=== PATIENT | female | born 1930 | race Caucasian/White ===

== ENCOUNTER → 2016-09-10 | Outpatient (CLI) | payer OTHER ==
[~2016-09-10] MED LIST: ACTONEL 35 MG35 M1 PO; ASPIRIN EC325 M1 PO; CALCITONIN SALMON NASAL; CALCIUM + VIT1 EACH PO; CARBIDOPA-LEVO1 EAC2 PO; CARBIDOPA-LEVO1 EAC9 PO; CELEBREX 200 M200 M1 PO; FISH OIL 1,2001 EAC3 PO; GLUCOSAMINE1000 MG PO; PRAVACHOL40 MG PO; SYNTHROID50 MCG PO; ZETIA10 MG PO
== END ==
LOC: RAD 13:35
DX: M41.86 Other forms of scoliosis, lumbar region (principal)

== ENCOUNTER → 2016-09-17 | Outpatient (CLI) | payer OTHER | LOC: MRI 13:45 → EDSTATUS 15:29 | DX: M51.36 Other intervertebral disc degeneration, lumbar region (principal); M48.06 Spinal stenosis, lumbar region ==

== ENCOUNTER → 2016-09-21 | Outpatient (CLI) | payer OTHER ==
[~2016-09-21] VITALS: Ht 160 cm; Wt 63.6 kg
[~2016-09-21] MED LIST changes: +CALCIUM + VITA1 EACH PO; +GABAPENTIN 100100 MG PO; +MELATONIN1 MG PO; +PROLIA60 MG/1 ML SQ
--- NOTE | ~2016-09-21 | HPC ---
[facility] [address] [place] [address] PAIN MANAGEMENT CONSULTATION [facility] Room #: REG VERNELL ArmstrongRenu#: [id number] Admission: 09/21/16 Attend Phys: Joe Zavala DO Discharge: Date of : 31 Report #: [id number] THIS REPORT FOR: //name// CC: Efraín Zavala HISTORY OF PRESENT ILLNESS: The patient is an 86-year-old female seen in consultation at the request of Dr. Juárez for assistance with management of ongoing pain, low back, left buttock and leg. The patient describes constant pulling, aching sensation. She feels pain started about 3 months ago without specific antecedent trauma and overuse. She describes continuous aching, pulling pain. She rates it as 7-10 on a VAS. Seems to be exacerbated bending forward. Some relief when sitting. REVIEW OF SYSTEMS: Complete review of systems attached to chart and gone over with the patient. SOCIAL HISTORY: She is . She does not smoke or drink alcohol to excess. PAST MEDICAL HISTORY: History of coronary artery disease, hypothyroidism and DJD status post bilateral knee surgeries. Did have breast cancer, bilateral having had mastectomies in 2001 and 2002. Has coronary artery stents in 2007 and 2008. MEDICATIONS: Medication list was reconciled includes Prolia for osteoporosis, melatonin for some insomnia, gabapentin recently started 100 mg b.i.d. for pain, carbidopa/levodopa for movement disorder (diagnosed with Parkinson, though the patient states that there has been some debate on this diagnosis). Celebrex quite some time for chronic DJD. Zetia for dyslipidemia. Synthroid and Pravachol. PHYSICAL EXAMINATION: GENERAL: A 5 foot 3 inch, 138 pound female, BMI is 24.8 kilograms per meter squared. VITAL SIGNS: Stable as noted in the EMR. NEUROLOGIC: Cranial nerves 2-12 are grossly intact. HEENT: Pupils equal, reactive to light and accommodation. Extraocular muscles are intact. NECK: Cervical range of motion is full. Thyroid is modestly enlarged. Does have some thoracic kyphoscoliosis noted. HEART: Regular rhythm without murmur. LUNGS: Clear to auscultation. ABDOMEN: Benign. EXTREMITIES: Upper extremity strength is symmetric. Rises from chair using armrest. Diffuse tenderness in the SI area, left side. Positive straight leg raise in left at 30 degrees. Slight decreased left hip flexion strength. [facility] [address] [place] [address] PAIN MANAGEMENT CONSULTATION Name: SUSAN EWING [facility] Room #: AMANDA VERNELL Capone#: [id number] Admission: 09/21/16 Attend Phys: Joe Zavala DO Discharge: Date of : 31 Report #: [id number] Modestly antalgic gait. DIAGNOSTIC STUDIES: Include MRI of the lumbar spine for 09/17/2016. She has multilevel degenerative changes, right convex curvature and a large disk extrusion, L2-L3. ASSESSMENT: Symptomatic lumbar radiculopathy, component of sacroiliac-mediated pain in a pleasant 86-year-old female with osteoporosis, thoracolumbar scoliosis, coronary artery disease, and history of breast cancer. RECOMMENDATIONS: After discussion with the patient today about therapeutic option, we have elected to move forward with epidural injection under fluoroscopy today at L3-L4, consider SI joint injection if there is still some SI-mediated pain that is residual. Continue Celebrex as needed for pain. Thank you for allowing me to participate in the patient's care. I will keep you abreast of her progress. PROCEDURE NOTE: Lumbar epidural injection under fluoroscopy. DESCRIPTION OF PROCEDURE: After both written and informed consent to include risk of spinal cord damage, increased pain, weakness and dural puncture, the patient was taken to the fluoroscopy suite, placed in the prone position. After sterile prep and drape, a skin wheal with lidocaine was raised. A 22-gauge epidural Tuohy needle was inserted in the midline at L3-L4 with good loss to resistance. Negative aspiration for cerebrospinal fluid or blood was noted. Then 1 mL of Omnipaque under biplanar fluoroscopy showed good spread within the epidural space. This was followed with 80 mg of triamcinolone plus 1 mL of 1.5% preservative-free Xylocaine, 0.5 mL Xylocaine was then injected to flush the needle; it was removed. The patient was monitored for an appropriate period of time and discharged in good and stable condition. <ELECTRONICALLY SIGNED> By: Joe Zavala DO 09/26/16 [id number] Joe Zavala DO /nt
[2016-09-21 13:53] VITALS: BP 132/67
== END | disposition home or self-care (01) ==
LOC: PAIN 08:47
DX: M54.16 Radiculopathy, lumbar region (principal); M53.3 Sacrococcygeal disorders, not elsewhere classified; I25.10 Atherosclerotic heart disease of native coronary artery without angina pectoris; I51.9 Heart disease, unspecified; G20 Parkinson's disease; M19.90 Unspecified osteoarthritis, unspecified site; E03.9 Hypothyroidism, unspecified; E78.5 Hyperlipidemia, unspecified; M81.0 Age-related osteoporosis without current pathological fracture; M41.85 Other forms of scoliosis, thoracolumbar region; Z95.5 Presence of coronary angioplasty implant and graft; Z85.3 Personal history of malignant neoplasm of breast; Z79.82 Long term (current) use of aspirin; Z96.653 Presence of artificial knee joint, bilateral; Z90.13 Acquired absence of bilateral breasts and nipples; Z98.890 Other specified postprocedural states

== ENCOUNTER → 2016-10-12 | Outpatient (CLI) | payer OTHER ==
[~2016-10-12] VITALS: Ht 160 cm; Wt 62.7 kg
--- NOTE | ~2016-10-12 | HPC ---
[facility] [place] [address] PAIN MANAGEMENT CONSULTATION [facility] Room #: REG VERNELL Capone#: [id number] Admission: 10/12/16 Attend Phys: Joe Zavala DO Discharge: Date of : 31 Report #: [id number] THIS REPORT FOR: //name// CC: Efraín Zavala DATE OF SERVICE: 10/12/2016 HISTORY OF PRESENT ILLNESS: The patient is a pleasant 86-year-old female, prior seen in consultation at the request of Dr. Juárez for evaluation of lumbar radicular pain. She was given a single epidural injection at L3-L4 with about 50-75% overall improvement of baseline pain, still however has pain in the right leg which interferes with function. PHYSICAL EXAMINATION: Shows modestly antalgic gait, slight decreased right hip flexion and lower extremity flexion strength. The patient continues to take Celebrex on a daily basis. Does have history of coronary artery disease. We talked about concerns with coronary artery disease and routine use of a nonsteroidal anti-inflammatory, studies suggest that perhaps nondaily use, i.e. nonsteroidal anti-inflammatory agent use 3-4/7 days may somewhat help mitigate the cardiac risk. We will have the patient continue that conversation with her prescribing physician, Dr. Juárez. ASSESSMENT: Symptomatic lumbar radiculopathy by clinical exam, greater than 50% relief, ongoing with one epidural injection. RECOMMENDATION: Repeat epidural injection under fluoroscopy today. Follow up in 4 weeks for reevaluation. Cancel if 80% improved overall. Thanks for allowing me to participate in the patient's care. I will keep you abreast of her progress. PROCEDURE: Lumbar epidural injection under fluoroscopy. PROCEDURE NOTE: After both written and informed consent to include risk of spinal cord damage, increased pain, weakness and dural puncture, the patient was taken to the fluoroscopy suite, placed in the prone position. After sterile prep and drape, a skin wheal with lidocaine was raised. A 22-gauge epidural Tuohy needle was inserted in the midline at L3-L4 with good loss to resistance. Negative aspiration for cerebrospinal fluid or blood was noted. Then 1 mL of Omnipaque under biplanar fluoroscopy showed good spread within the epidural space. This was followed with 80 mg of triamcinolone plus 1 mL of 1.5% preservative-free Xylocaine, 0.5 mL Xylocaine was then injected to flush the [facility] [address] [place] [address] PAIN MANAGEMENT CONSULTATION [facility] Room #: REG CLI Liborio#: [id number] Admission: 10/12/16 Attend Phys: Joe Zavala DO Discharge: Date of : 31 Report #: [id number] needle; it was removed. The patient was monitored for an appropriate period of time and discharged in good and stable condition. <ELECTRONICALLY SIGNED> By: Joe Zavala DO 10/15/16 1253 [id number] 26 Joe Zavala DO /rico
[2016-10-12 12:59] VITALS: BP 124/69
== END | disposition home or self-care (01) ==
LOC: PAIN 07:07
DX: M54.16 Radiculopathy, lumbar region (principal); I25.10 Atherosclerotic heart disease of native coronary artery without angina pectoris; Z79.899 Other long term (current) drug therapy; Z79.1 Long term (current) use of non-steroidal anti-inflammatories (NSAID)

== ENCOUNTER → 2016-11-08 | Outpatient (CLI) | payer OTHER ==
[~2016-11-08] VITALS: Ht 160 cm; Wt 60.5 kg
--- NOTE | ~2016-11-08 | HPC ---
[facility] [place] [address] PAIN MANAGEMENT CONSULTATION Name: SUSAN EWING Room #: REG VERNELL Capone#: [id number] Admission: 11/08/16 Attend Phys: Joe Zavala DO Discharge: Date of : 31 Report #: [id number] THIS REPORT FOR: //name// CC: Efraín Zavala DATE OF SERVICE: 11/08/2016 The patient is an 86-year-old female last seen in the pain clinic 10/12/2016. We repeated an epidural injection, she had initial injection with 50-75% overall improvement. 09/21/2016, second injection. 10/12/2016 afforded nominal relief. She has pain in the left L3 pattern. She notes her pain is a 2 on VAS, but it is exacerbated with activity in the morning. Pain in the left hip and thigh. Modestly antalgic gait. PHYSICAL EXAMINATION: Shows a pleasant 86-year-old female, BMI is 23.6 kilograms per meter squared. Vital signs stable as noted in the EMR. Again, antalgic gait, pain radiating to left hip, slight weakness in left hip flexion. Reviewed MRI findings noting L2-L3 to have a large HMP at L2-L3. RECOMMENDATIONS: Left L2-L3 transforaminal epidural injection today. Follow up with Neurosurgery if symptoms do not improve following the injection today. PROCEDURE: Transforaminal lumbar epidural injection under fluoroscopy. PROCEDURE NOTE: After both written and informed consent was obtained including risk of spinal cord damage, infection, increased pain and paralysis, the patient agreed to proceed. The patient was taken to the fluoroscopy suite, placed in a prone position with appropriate abdominal bolstering. After sterile prep with ChloraPrep and sterile drape, a skin wheal with 1% Xylocaine was raised. A 22 gauge 4-1/2 inch epidural Tuohy needle was inserted. From an oblique approach into the posterior-superior aspect of the left L2-L3 neural foramen with continuous pressure on the glass syringe plunger for loss of resistance. Glass syringe was filled with 2 cc of 0.1 Xylocaine. The glass loss of resistance syringe was removed. A low volume extension tubing was connected, negative aspiration was accomplished for cerebrospinal fluid or blood. 1 mL of Omnipaque was injected which showed spread both within the epidural space and laterally along the nerve root. This was followed with 80 mg of triamcinolone plus 1 mL of 1.5% preservative-free Xylocaine. Needle was partially withdrawn, 0.5 mL of Xylocaine was injected to clear the needle and the needle was removed. The [address] [address] PAIN MANAGEMENT CONSULTATION Name: [facility] Room #: REG VERNELL Capone#: [id number] Admission: 11/08/16 Attend Phys: Joe Zavala DO Discharge: Date of : 31 Report #: [id number] was cleansed, band-aid was applied. The patient was allowed to ambulate to the recovery room, discharged in good and stable condition. By: [id number] Joe Zavala DO /nt
[2016-11-08 11:02] VITALS: BP 138/71
== END | disposition home or self-care (01) ==
LOC: PAIN 07:05
DX: M54.16 Radiculopathy, lumbar region (principal); Z98.890 Other specified postprocedural states; Z79.891 Long term (current) use of opiate analgesic; Z79.82 Long term (current) use of aspirin; Z88.8 Allergy status to other drugs, medicaments and biological substances; Z88.0 Allergy status to penicillin; Z88.2 Allergy status to sulfonamides

== ENCOUNTER → 2017-02-07 | Outpatient (CLI) | payer OTHER | LOC: ULTRA 15:04 | DX: M79.605 Pain in left leg (principal); M79.89 Other specified soft tissue disorders ==

== ENCOUNTER → 2017-05-21 | Outpatient (CLI) | payer OTHER | LOC: RAD 11:26 | DX: G95.89 Other specified diseases of spinal cord (principal); M47.896 Other spondylosis, lumbar region; M41.86 Other forms of scoliosis, lumbar region ==

== ENCOUNTER → 2017-08-16 | Outpatient (CLI) | payer OTHER | LOC: RAD 03:48 | DX: N63.10 Unspecified lump in the right breast, unspecified quadrant (principal); R92.8 Other abnormal and inconclusive findings on diagnostic imaging of breast; Z98.82 Breast implant status ==

== ENCOUNTER → 2017-09-12 | Outpatient (CLI) | payer OTHER | LOC: ULTRA 10:41 | DX: N63.10 Unspecified lump in the right breast, unspecified quadrant (principal); E78.5 Hyperlipidemia, unspecified; I25.10 Atherosclerotic heart disease of native coronary artery without angina pectoris; M81.0 Age-related osteoporosis without current pathological fracture; G20 Parkinson's disease; Z85.3 Personal history of malignant neoplasm of breast ==

== ENCOUNTER → 2017-12-03 | Outpatient (CLI) | payer OTHER | LOC: NUC 08:35 | DX: M19.90 Unspecified osteoarthritis, unspecified site (principal); M41.86 Other forms of scoliosis, lumbar region; M41.84 Other forms of scoliosis, thoracic region ==

== ENCOUNTER → 2019-06-30 | Outpatient (CLI) | payer OTHER | LOC: SJCVC 13:11 | DX: R94.31 Abnormal electrocardiogram [ECG] [EKG] (principal); I51.7 Cardiomegaly; I25.10 Atherosclerotic heart disease of native coronary artery without angina pectoris; E78.5 Hyperlipidemia, unspecified; I65.23 Occlusion and stenosis of bilateral carotid arteries; G20 Parkinson's disease ==

== ENCOUNTER → 2019-12-31 | Outpatient (CLI) | payer OTHER | LOC: SJCVC 13:39 | PROVIDERS: ATTEND Internal Medicine | DX: R94.31 Abnormal electrocardiogram [ECG] [EKG] (principal); I45.10 Unspecified right bundle-branch block; I51.7 Cardiomegaly; E78.5 Hyperlipidemia, unspecified; I25.10 Atherosclerotic heart disease of native coronary artery without angina pectoris; I65.23 Occlusion and stenosis of bilateral carotid arteries; G20 Parkinson's disease; I25.2 Old myocardial infarction; Z79.899 Other long term (current) drug therapy ==

== ENCOUNTER → 2020-07-13 | Outpatient (CLI) | payer OTHER | LOC: SJCVCIMAG 07-06 09:40 | PROVIDERS: ATTEND Internal Medicine | DX: I08.0 Rheumatic disorders of both mitral and aortic valves (principal); R00.0 Tachycardia, unspecified; I25.10 Atherosclerotic heart disease of native coronary artery without angina pectoris; E78.5 Hyperlipidemia, unspecified; I65.23 Occlusion and stenosis of bilateral carotid arteries; G20 Parkinson's disease; E78.00 Pure hypercholesterolemia, unspecified; I25.2 Old myocardial infarction; Z88.8 Allergy status to other drugs, medicaments and biological substances; Z79.82 Long term (current) use of aspirin; Z79.899 Other long term (current) drug therapy ==

== ENCOUNTER → 2020-12-30 | Outpatient (CLI) | payer OTHER | LOC: RAD 10:18 | PROVIDERS: ATTEND Family Medicine | DX: R53.1 Weakness (principal); M25.78 Osteophyte, vertebrae ==

== ENCOUNTER → 2021-01-24 | Outpatient (CLI) | payer OTHER | LOC: SJCVC 13:58 | PROVIDERS: ATTEND Internal Medicine | DX: R94.31 Abnormal electrocardiogram [ECG] [EKG] (principal); I51.7 Cardiomegaly; I25.10 Atherosclerotic heart disease of native coronary artery without angina pectoris; E78.5 Hyperlipidemia, unspecified; I35.9 Nonrheumatic aortic valve disorder, unspecified; I65.23 Occlusion and stenosis of bilateral carotid arteries; G20 Parkinson's disease; M19.90 Unspecified osteoarthritis, unspecified site; Z79.82 Long term (current) use of aspirin; Z79.899 Other long term (current) drug therapy; Z88.8 Allergy status to other drugs, medicaments and biological substances; Z98.890 Other specified postprocedural states ==

== ENCOUNTER → 2021-01-26 | Outpatient (CLI) | payer OTHER | LOC: MRI 13:36 | PROVIDERS: ATTEND Psychiatry & Neurology Neurology | DX: M47.812 Spondylosis without myelopathy or radiculopathy, cervical region (principal); M48.02 Spinal stenosis, cervical region; M54.2 Cervicalgia; M54.50 Low back pain, unspecified ==

== ENCOUNTER → 2021-02-02 | Outpatient (CLI) | payer OTHER | LOC: MRI 08:57 | PROVIDERS: ATTEND Psychiatry & Neurology Neurology | DX: M47.817 Spondylosis without myelopathy or radiculopathy, lumbosacral region (principal); M51.27 Other intervertebral disc displacement, lumbosacral region; M48.02 Spinal stenosis, cervical region; G99.2 Myelopathy in diseases classified elsewhere ==

== ENCOUNTER → 2021-02-24 | Outpatient (CLI) | payer OTHER | LOC: HYPER 08:16 | PROVIDERS: ATTEND Emergency Medicine | DX: I89.0 Lymphedema, not elsewhere classified (principal); M48.061 Spinal stenosis, lumbar region without neurogenic claudication; G20 Parkinson's disease; E78.00 Pure hypercholesterolemia, unspecified; I25.10 Atherosclerotic heart disease of native coronary artery without angina pectoris; I25.2 Old myocardial infarction; M81.0 Age-related osteoporosis without current pathological fracture; M19.90 Unspecified osteoarthritis, unspecified site; G25.81 Restless legs syndrome; F32.9 Major depressive disorder, single episode, unspecified; F41.9 Anxiety disorder, unspecified; Z85.3 Personal history of malignant neoplasm of breast; Z79.82 Long term (current) use of aspirin; Z79.899 Other long term (current) drug therapy; Z96.653 Presence of artificial knee joint, bilateral; Z90.11 Acquired absence of right breast and nipple; Z90.12 Acquired absence of left breast and nipple ==

== ENCOUNTER → 2021-03-09 | Outpatient (CLI) | payer OTHER | LOC: HYPER 08:24 | PROVIDERS: ATTEND Emergency Medicine | DX: I89.0 Lymphedema, not elsewhere classified (principal); M48.061 Spinal stenosis, lumbar region without neurogenic claudication; G20 Parkinson's disease; E78.00 Pure hypercholesterolemia, unspecified; I25.10 Atherosclerotic heart disease of native coronary artery without angina pectoris; I25.2 Old myocardial infarction; M81.0 Age-related osteoporosis without current pathological fracture; M19.90 Unspecified osteoarthritis, unspecified site; G25.81 Restless legs syndrome; F32.9 Major depressive disorder, single episode, unspecified; F41.9 Anxiety disorder, unspecified; Z85.3 Personal history of malignant neoplasm of breast; Z79.82 Long term (current) use of aspirin; Z96.653 Presence of artificial knee joint, bilateral; Z90.11 Acquired absence of right breast and nipple; Z90.12 Acquired absence of left breast and nipple ==